=== PATIENT | male | born 1975 | race Caucasian/White ===

== ENCOUNTER 2022-10-23 12:17 | Emergency (ER) | payer BC, SELFPAY ==
--- OUTSIDE RECORDS SUMMARY | 2022-10-23 12:20 | XMS REPORT | Continuity of Care Document ---
:1975 Author Organization [facility] t Address [address] [place] [address] [place] [id number] Care Team Providers Name Role Phone Mendez CHANEY, Chuyita Primary Care Physician ADONIS KEENE Attending Clinician Unavailable PASCUAL TEMPLE Attending Clinician Unavailable LAB90 Attending Clinician Unavailable Lab, Adc Fam Pob I Attending Clinician Unavailable Ekaterina Bower MD Attending Clinician EKATERINA BOWER Attending Clinician Unavailable Doctor Unassigned, [place] Attending Clinician Unavailable JENNIFER CORTEZ Attending Clinician Unavailable Eva Goel Attending Clinician Payers Payer Name Policy Type Policy Number Effective Date Expiration Date S rose marie BCBS 2 [id number] 2022 00:00:00 Problems Condition Condition Condition Status Onset Resolution Last Treating Co mments Source Name Details Category Date Date Treatment Clinician Date 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 04-15 pathway pathway 00:00: Hospita 00 l Unspecifie Unspecifie Disease Active 2015-04 M ethodi d visual d visual 04-15 field field 00:00: Hospita defects defects 00 l 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 hodi vision vision 04-15 disorder disorder 00:00: Hospit a with with 00 l diplopia diplopia Blurred Blurred Disease Active 2015-04 Methodi vision, vision, 04-15 bilateral bilateral 00:00: Hosp sky 00 l Frequent Frequent Disease Active 2015-04 Metho di headaches headaches 1-08 st 00:00: Hospita 00 l No known No known Disease Kelse y active active Seybold problems problems - Externa l Allergies, Adverse Reactions, Alerts Allergy Allergy Status Severity Reaction(s) Onset Inactive Treating Comm ents Source Name Type Date Date Clinician NO KNOWN Drug Active Univers ALLERGIE Class ity of S [facility] Family History Family Member Diagnosis Comments Start Date Stop Date Source Natural sister Hypertension [facility] Natural sister Thyroid disease [facility]o [facility] Natural father Diabetes [facility] Natural father Hypertension [facility] Natural mother Cataracts [facility] Social History Social Habit Start Date Stop Date Quantity Comments Source Gender identity [facility] Sexual orientation [facility] Exposure to Not sure University SARS-CoV-2 (event) [facility] History SDOH Earline Seybo ld - Alcohol Binge External History SDOH Earline Seybo ld - Alcohol Frequency Externa l History SDOH Earline Seybo ld - Alcohol Std Drinks [employer] History of Social 2016-10-08 2016-10-[address] function 00:00:00 00:00:00 Hospital Alcohol intake 2016-03-05 2016-03-05 Current drinker Metho dist 00:00:00 00:00:00 of [facility] (finding) Alcohol Comment 2016-02-14 2016-02-14 [facility] Tobacco use and 2016-02-14 2016-02-14 Former smokeless Met [facility] exposure 00:00:00 00:00:00 tobacco user Hospital History of tobacco 2000-02-14 User of Method ist use 00:00:00 smokeless [facility] tobacco Sex Assigned At [birth year] [facility] 00:00:00 00:00:00 Hospital Smoking Status Start Date Stop Date Source Unknown if ever smoked Universit y of [facility] Never smoked tobacco Earline Seyb old - External Medications Ordered Filled Start Stop Current Ordering Indication Dosage Frequency Signature Comments Components Source Medication Medication Date Date Medication? Clinician (SIG) Name Name Losartan 2022-0 Yes 25mg Take 1 Earline Potassium 4-03 tablet (25 Seyb old 25 MG oral 00:00: mg total) - Tablet 00 by mouth Externa daily l Sertraline 2022-0 Yes [id number] 100mg Take 1 Earline HCl 100 MG 4-03 tablet Seybold oral Tablet 00:00: (100 mg - 00 total) by Externa mouth l daily Omeprazole Yes 40mg QD Take 1 Kelse y 40 MG oral 4-03 capsule Seybol d Delayed 00:00: (40 mg - Release 00 total) by Externa Capsule mouth l daily as needed Aripiprazol Yes [id number] 1{tbl} Take 1 Earline e (Abilify) 4-03 tablet by Sey bold 2 MG oral 00:00: mouth - Tablet 00 daily Externa l Aripiprazol 2022- No [id number] 1{tbl} Take 1 Earline e (Abilify) 4- 04-03 tablet by Se ybold 2 MG oral 00:00: 00:00 mouth - Tablet 00 :00 daily Externa l Amoxicillin 2022- No 1{tbl} Take 1 K elsey -Pot 4-06 09-03 tablet by Seybold Clavulanate 00:00: 00:00 mouth 2 - 875-125 MG 00 :00 times Externa oral Tablet daily l Pseudoeph-B 2022- No 10mL Q.25D Take 10 mL Earline romphen-DM - 04-03 by mouth 4 Se ybold (Bromfed 00:00: 00:00 times - DM) 30-2-10 00 :00 daily as Exte rna MG/5ML oral needed l Syrup TRIMETHOPRI 2022- No 1[drp] Place 1 Earline M-POLYMYXIN 07-09-03 drop into Se ybold B [id number] 00:00: 00:00 both eyes - UNIT/ML-% 00 :00 every 4 Externa ophthalmic (four) l Solution hours Atomoxetine 2022- No [id number] 40mg Take 1 Earline HCl 4-03 04-03 capsule Seybold (Strattera) 00:00: 00:00 (40 mg - 40 MG oral 00 :00 total) by Exte rna Capsule mouth l daily Losartan 2022- No 25mg Take 1 Earline Potassium 2-27 04-03 tablet (25 Sey bold 25 MG oral 00:00: 00:00 mg total) - Tablet 00 :00 by mouth Externa daily l Omeprazole 2022- No 40mg QD Take 1 Argenis ey 40 MG oral 06-04- capsule Seybo ld Delayed 00:00: 00:00 (40 mg - Release 00 :00 total) by Externa Capsule mouth l daily as needed Sertraline 0 2022- No 100mg Take 1 Krzysztof sey HCl 100 MG 06-04- tablet Seybol d oral Tablet 00:00: 00:00 (100 mg - 00 :00 total) by Externa mouth l daily Sertraline 2021-04 Yes 100mg Take 100 Ke lsey HCl 100 MG 1-26 mg by Seybold oral Tablet 00:00: mouth - 00 daily Externa l Sertraline 2021-04 Yes 100mg Take 100 Ke lsey HCl 100 MG 1-26 mg by Seybold oral Tablet 00:00: mouth - 00 daily Externa l Losartan Yes 25mg Take 25 mg Krzysztof sey Potassium 9-28 by mouth Seybol d 25 MG oral 00:00: daily - Tablet 00 Externa l Omeprazole Yes 40mg QD Take 40 mg K elsey 40 MG oral 9-28 by mouth Seybo ld Delayed 00:00: daily as - Release 00 needed Externa Capsule l Losartan Yes 25mg Take 25 mg Krzysztof sey Potassium 9-28 by mouth Seybol d 25 MG oral 00:00: daily - Tablet 00 Externa l Omeprazole 0 Yes 40mg QD Take 40 mg K elsey 40 MG oral 9-28 by mouth Seybo ld Delayed 00:00: daily as - Release 00 needed Externa Capsule l esomeprazol 2015-04 Yes Method i e (NexIUM) 04-13 st 40 MG 00:00: Hospita capsule 00 l sertraline 2015-04 Yes Methodi (ZOLOFT) 04-13 st 100 MG 00:00: Hospita tablet 00 l Vital Signs Vital Name Observation Time Observation Value Comments Source Systolic blood 2022-07-09 21:40:00 130 mm[Hg] Earline Edmond - pressure External Diastolic blood 2022-07-09 21:40:00 70 mm[Hg] Zachery Edmond - pressure External Heart rate 2022-07-09 21:40:00 71 /min Earline pagan - External Respiratory rate 2022-07-09 21:40:00 16 /min Argenis jones Seybold - External Body height 2022-07-09 21:40:00 190.5 cm Earline Georges eybold - External Body weight 2022-07-09 21:40:00 129.003 kg Earline Georges eybold - External BMI 2022-07-09 21:40:00 35.55 kg/m2 Earline Georges eybold - External Oxygen saturation in 2022-07-09 21:40:00 97 /min Earline Seybold - Arterial blood by External Pulse oximetry Systolic blood 2022-03-19 14:26:00 116 mm[Hg] Earline Seybold - pressure External Diastolic blood 2022-03-19 14:26:00 70 mm[Hg] Krzysztofse y Seybold - pressure External Heart rate 2022-03-19 14:26:00 86 /min Earline Georges eybold - External Body temperature 2022-03-19 14:26:00 36.89 Maria Antonia Argenis ey Seybold - External Respiratory rate 2022-03-19 14:26:00 16 /min Argenis jones Seybold - External Body height 2022-03-19 14:26:00 188 cm Earline Georges eybold - External Body weight 2022-03-19 14:26:00 133.358 kg Earline Georges eybold - External BMI 2022-03-19 14:26:00 37.75 kg/m2 Earline Georges eybold - External Procedures Procedure Date / Time Performed Performing Clinician [facility] e ASSIGNMENT OF BENEFITS 2020-11-17 18:42:15 Doctor Unassigned, No [facility] Plan of Care Planned Activity Planned Date Details Comments Source Future Scheduled 2022-09-21 Screening for [facility] Test 15:40:56 malignant neoplasm of colon (procedure) [code = 996021340] Future Scheduled 2022-09-21 Screening for [facility] Test 15:40:56 malignant neoplasm of colon (procedure) [code = 208182499] Future Scheduled 2022-09-21 Screening for [facility] Test 15:40:56 malignant neoplasm of colon (procedure) [code = [id number]] Future Scheduled 2022-09-21 [facility] 15:40:56 (#1) [code = COVID-19 VACCINE (#1)] Future Scheduled 2022-09-21 Screening for [facility] Test 15:40:56 malignant neoplasm of colon (procedure) [code = [id number]] Future Scheduled 2022-09-21 Screening for [facility] Test 15:40:56 malignant neoplasm of colon (procedure) [code = [id number]] Future Scheduled 2022-09-21 INFLUENZA VACCINE [facility] Test 15:40:56 [code = INFLUENZA VACCINE] Encounters Start End Encounter Admission Attending Care Care Encounter Source Date/Time Date/Time Type Type Clinicians Facility Department ID 2022-08-13 2022-08-13 Outpatient EARLINE KEENE [id number] Earline 00:00:00 00:00:00 ADONIS Seybol d 2022-07-09 2022-07-09 Outpatient EARLINE KEENE [id number] Earline 15:45:00 15:45:00 ADONIS Seybol d 2022-06-05 2022-06-05 Outpatient EARLINE KEENE [id number] Earline 00:00:00 00:00:00 ADONIS Seybol d 2022-06-04 2022-06-04 Outpatient EARLINE TEMPLE [id number] Earline 00:00:00 00:00:00 PASCUAL Seybol d 2022-03-29 2022-03-29 Outpatient EARLINE KEENE [id number] Earline 00:00:00 00:00:00 ADONIS Seybol d 2022-03-20 2022-03-20 Outpatient EARLINE TEMPLE [id number] Earline 10:45:00 10:45:00 PASCUAL Seybol d 2022-03-19 2022-03-19 Outpatient LAB90 EARLINE BOBO [id number] Earline 09:20:00 09:20:00 Seybol d 2022-03-19 2022-03-19 Outpatient EARLINE KEENE [id number] Earline 09:00:00 09:00:00 ADONIS Seybol d 2022-03-19 2022-03-19 Outpatient EARLINE KEENE [id number] Earline 08:30:00 08:30:[address] 2020-11-17 2020-11-17 Laboratory Lab, [facility] Fam Po I [facility] [id number]. [id number] Univers 13:42:54 14:02:54 Only Ekaterina [facility] [id number] ity of [place] [id number] [place] [facility] [phone] Tn dical nal [address] [employer] [facility] One 2020-11-17 2020-11-17 [facility] [id number] Univers 14:00:00 14:00:00 EKATERINA ity [facility] 2020-11-17 2020-11-17 Orders Doctor CLARISSA [id number] Univers 00:00:00 00:00:00 Only Unassigned, SIGIFREDO [id number] ity of [place] [facility] [id number] [place] [phone] [address] 2020-05-16 2020-05-16 [facility] [id number] Univers 17:40:00 17:55:48 JENNIFER ity [facility] 2020-03-29 2020-03-29 Laboratory Lab, [facility] Fam [facility] 1.2. [id number] Univers 13:55:55 14:15:55 Only Eva [facility] [id number] ity of [place] [id number] [place] Profess[facility] [phone] Tn dical nal [address] [employer] [address] [facility] 2020-03-29 2020-03-29 Outpatient R [facility] [id number] Univers 14:00:00 14:00:00 ity of [facility] Results This patient has no known results.
--- NOTE | 2022-10-23 13:02 | RAD REPORT ---
EXAM DESCRIPTION: CT - Head Brain Wo Cont - 10/23/2022 12:47 pm CLINICAL HISTORY: TRAUMA Headache, drowsiness COMPARISON: <Comparisons> TECHNIQUE: All CT scans are performed using dose optimization technique as appropriate and may inclu de automated exposure control or mA/KV adjustment according to patient size. FINDINGS: No intracranial hemorrhage, hydrocephalus or extra-axial fluid collection.No areas of brai n edema or evidence of midline shift. The paranasal sinuses and mastoids are clear. The calvarium is intact. IMPRESSION: No acute intracranial abnormality.
--- NOTE | 2022-10-23 14:00 | ER ---
Nurse's Notes [facility] Name: Daniel Foss Jr Age: 47 yrs Sex: Male : 1975 Arrival Date: 10/23/2022 Time: 12:17 Bed 8 Private MD: Diagnosis: Laceration without foreign body of scalp;Fall on and from ladder, initial encounter Presentation: 10/23 12:00 Trauma event details: Injury occurred in the [facility], Injury occurred: in a [facility] public building. Injury occurred: October 23, 2022 Injury occurred at: 12:25. 12:22 Chief complaint: EMS states: fell off 4ft ladder onto concrete while working at [facility] [employer]. 1st impact was left shoulder, then left side of head, denies LOC, not on blood thinners. 3cm laceration to left side of head, 2cm laceration to left medial upper arm, 2cm laceration to left knee. Care prior to arrival: Bleeding of injury controlled. Injury dressed. Mechanism of Injury: Fall from ladder approximately 4 feet. 12:22 Acuity: YAMILETH 2 [facility] 12:22 Method Of Arrival: EMS: [place] [address] 12:32 Coronavirus screen: Vaccine status: Patient reports being unvaccinated. Ebola Screen: [facility] No symptoms or risks identified at this time. Initial Sepsis Screen: Does the patient meet any 2 criteria? No. Patient's initial sepsis screen is negative. Does the patient have a suspected source of infection? No. Patient's initial sepsis screen is negative. Risk Assessment: Do you want to hurt yourself or someone else? Patient reports no desire to harm self or others. Onset of symptoms was October 23, 2022. Historical: - Allergies: 12:33 No Known Allergies; [facility] - Home Meds: 12:33 losartan oral [Active]; Omeprazole Oral [Active]; sertraline oral [Active]; 3 aripiprazole oral [Active]; - PMHx: 12:33 Hypertensive disorder; Depressive disorder; 3 - Immunization history: Last tetanus immunization: < 10 years ago. - Social history:: Smoking status: Patient denies any tobacco usage or history of. Patient uses alcohol, occasionally. Screenin:20 Abuse screen: Denies threats or abuse. Denies injuries from another. Tuberculosis [facility] screening: No symptoms or risk factors identified. 12:22 [facility] ED Fall Risk Assessment (Adult) Score/Fall Risk Level 0 - 2 = Low Risk. eh3 Nutritional screening: No deficits noted. Primary Survey: 12:20 NO uncontrolled hemorrhage observed. Breathing/Chest: Spontaneous respiratory effort, eh3 equal unlabored respirations, breath sounds clear bilaterally, regular pattern, symmetrical chest rise and fall. Circulation: No external hemorrhage present. Regular and strong central pulse, skin warm/dry/normal color. Disability Pupils are equal, round, reactive to light and accommodation. Client is alert. Exposure/Environment: All clothing and personal items were removed. There is no evidence of uncontrolled external bleeding. Obvious injury(ies) are noted at this time: 3 lacerations and bruising A warming method has been applied: A warm blanket has been provided to the patient. Reassessment Breathing: Spontaneous respiratory effort, equal unlabored respirations, breath sounds clear bilaterally, regular pattern with symmetrical chest rise and fall. Circulation: No external hemorrhage noted. Regular and strong central pulse, skin warm/dry/normal color. Disability: Pupils Pupils are equal, round, reactive to light and accomodation. Alert. Assessment: 12:20 General: Appears in no apparent distress. uncomfortable, Behavior is calm, cooperative, eh3 appropriate for age. Pain: Complains of pain in head, anterior aspect of left shoulder and posterior aspect of left shoulder Pain currently is 7 out of 10 on a pain scale. Neuro: Level of Consciousness is awake, alert, obeys commands, Oriented to person, place, time, situation. Neuro: Speech is normal, Pupils are PERRLA. Cardiovascular: Capillary refill < 3 seconds Patient's skin is warm and dry. Respiratory: Airway is patent Respiratory effort is even, unlabored, Respiratory pattern is regular, symmetrical. GI: Abdomen is round non-distended. Derm: Skin is pink, warm \T\ dry. Wound noted. Musculoskeletal: Circulation, motion, and sensation intact. 13:20 Reassessment: Patient appears in no apparent distress at this time. No changes from kc6 previously documented assessment. Patient and/or family updated on plan of care and expected duration. Pain level reassessed. Patient is alert, oriented x 3, equal unlabored respirations, skin warm/dry/pink. 14:20 Reassessment: Patient appears in no apparent distress at this time. Patient and/or eh3 family updated on plan of care and expected duration. Pain level reassessed. Patient is alert, oriented x 3, equal unlabored respirations, skin warm/dry/pink. Vital Signs: 12:20 BP 117 / 73; Pulse 81; Resp 18; Temp 98.2(TE); Pulse Ox 97% on R/A; Weight 117.03 kg; eh3 Height 6 ft. 3 in. ; Pain 7/10; 13:29 BP 137 / 76; Pulse 72; Resp 17 S; Pulse Ox 100% on R/A; kc6 14:20 BP 136 / 85; Pulse 72; Resp 16; Pulse Ox 96% on R/A; eh3 12:20 Body Mass Index 32.25 (117.03 kg, 190.5 cm) eh3 12:20 Pain Scale: Adult eh3 [place] Coma Score: 12:20 Eye Response: spontaneous(4). Motor Response: obeys commands(6). Verbal Response: eh3 oriented(5). Total: 15. Trauma Score (Adult): 12:20 Eye Response: spontaneous(1); Verbal Response: oriented(1); Motor Response: obeys eh3 commands(2); Systolic BP: > 89 mm Hg(4); Respiratory Rate: 10 to 29 per min(4); Tres Score: 15; Trauma Score: 12 ED Course: 12:20 Patient has correct armband on for positive identification. Placed in gown. Bed in low eh3 position. Call light in reach. Side rails up X2. Patient maintains SpO2 saturation greater than 95% on room air. 12:20 Patient maintains SpO2 saturation greater than 95% on room air. eh3 12:22 Patient arrived in ED. eh3 12:22 Thermoregulation: warm blanket given to patient. eh3 12:24 Kiana Aleman PA-C is PHCP. sb4 12:24 Samm Santos MD is Attending Physician. sb4 12:26 Triage completed. eh3 12:33 Arm band placed on. eh3 12:35 Christine Baez, KARISSA is Primary Nurse. eh3 12:47 Head Brain Wo Cont CT In Process Unspecified. EDMS 13:26 Shoulder Right (2 View) XRAY In Process Unspecified. EDMS 14:10 Wound care: to laceration located on left temporal area and left arm was cleaned with eh3 Betadine, irrigated with normal saline, dressed with Neosporin, band aid. 14:28 No provider procedures requiring assistance completed. Patient did not have IV access eh3 during this emergency room visit. Administered Medications: 14:00 Drug: Boostrix Tdap IM 0.5 ml Route: IM; Site: right deltoid; eh3 14:28 Follow up: Response: (VIS) Vaccine information sheet provided today. Questions and/or eh3 concerns addressed. VIS edition date: Nov 11, 2020.; No adverse reaction Medication: 14:00 Vaccine Information Statement (VIS) provided today. Questions and/or concerns eh3 addressed. VIS edition date: November 26, 2020. Outcome: 14:00 Discharge ordered by . sb4 14:29 Discharged to home ambulatory, with significant other. eh3 14:29 Condition: stable 14:29 Discharge instructions given to patient, Instructed on discharge instructions, follow up and referral plans. wound care, Demonstrated understanding of instructions, follow-up care, wound care. 14:29 Patient's length of stay was not longer than 2 hours. 14:29 Patient left the ED. eh3 Signatures: Dispatcher [employer] Christine Dixon RN RN eh3 Rosamaria Antonio RN RN Kiana Arora, KAREN PAMaria Del Rosario sb4
--- NOTE | 2022-10-23 14:00 | EDPHYS ---
Physician Documentation [facility] Name: Daniel Foss Jr Age: 47 yrs Sex: Male : 1975 Arrival Date: 10/23/2022 Time: 12:17 Bed 8 Private MD: ED Physician Samm Santos HPI: 10/23 13:32 This 47 yrs old Male presents to ER via EMS with complaints of Fall Injury. sb4 13:32 Details of fall: The patient fell from a height, from a ladder, approximately 4 feet. sb4 Onset: The symptoms/episode began/occurred just prior to arrival. Associated injuries: The patient sustained injury to the head, laceration, 3 cm(s), of the left temporal area, anterior aspect of left shoulder. The patient has not experienced similar symptoms in the past. Historical: - Allergies: 12:33 No Known Allergies; eh3 - Home Meds: 12:33 losartan oral [Active]; Omeprazole Oral [Active]; sertraline oral [Active]; eh3 aripiprazole oral [Active]; - PMHx: 12:33 Hypertensive disorder; Depressive disorder; eh3 - Immunization history: Last tetanus immunization: < 10 years ago. - Social history:: Smoking status: Patient denies any tobacco usage or history of. Patient uses alcohol, occasionally. ROS: 13:32 Constitutional: Negative for fever, chills, and weight loss, Eyes: Negative for injury, sb4 pain, redness, and discharge, Cardiovascular: Negative for chest pain, palpitations, and edema, Respiratory: Negative for shortness of breath, cough, wheezing, and pleuritic chest pain, Abdomen/GI: Negative for abdominal pain, nausea, vomiting, diarrhea, and constipation. 13:32 MS/extremity: Positive for injury or acute deformity, pain, of the anterior aspect of left shoulder. 13:32 Skin: Positive for laceration(s), of the left temporal area. 13:32 All other systems are negative. Exam: 13:32 Constitutional: This is a well developed, well nourished patient who is awake, alert, sb4 and in no acute distress. ENT: Mucous membranes moist. Cardiovascular: Regular rate and rhythm with a normal S1 and S2. Respiratory: Lungs have equal breath sounds bilaterally, clear to auscultation and percussion. No rales, rhonchi or wheezes noted. No increased work of breathing, no retractions or nasal flaring. Abdomen/GI: Soft, non-tender, no distension. MS/ Extremity: Pulses equal, no cyanosis. Neurovascular intact. Full, normal range of motion. Neuro: Awake and alert, GCS 15, oriented to person, place, time, and situation. Cranial nerves II-XII grossly intact. Motor strength 5/5 in all extremities. Sensory grossly intact. Cerebellar exam normal. Normal gait. 13:32 Head/face: Noted is a laceration(s), that is linear, 3 cm(s), of the left temporal area. 13:32 Skin: skin tear right knee and right forearm. Vital Signs: 12:20 BP 117 / 73; Pulse 81; Resp 18; Temp 98.2(TE); Pulse Ox 97% on R/A; Weight 117.03 kg; eh3 Height 6 ft. 3 in. ; Pain 7/10; 13:29 BP 137 / 76; Pulse 72; Resp 17 S; Pulse Ox 100% on R/A; kc6 14:20 BP 136 / 85; Pulse 72; Resp 16; Pulse Ox 96% on R/A; eh3 12:20 Body Mass Index 32.25 (117.03 kg, 190.5 cm) eh3 12:20 Pain Scale: Adult eh3 Tres Coma Score: 12:20 Eye Response: spontaneous(4). Motor Response: obeys commands(6). Verbal Response: eh3 oriented(5). Total: 15. Trauma Score (Adult): 12:20 Eye Response: spontaneous(1); Verbal Response: oriented(1); Motor Response: obeys eh3 commands(2); Systolic BP: > 89 mm Hg(4); Respiratory Rate: 10 to 29 per min(4); [place] Score: 15; Trauma Score: 12 Laceration: 13:56 Wound Repair of 2.5cm ( 1.0in ) subcutaneous laceration to left temporal area. Minimal sb4 contamination.. arc shaped. Distal neuro/vascular/tendon intact. Wound prep: Moderate cleansing with hibiclenz by me, Wound irrigation with saline by me, Wound explored moderately. Skin closed with 3 [place] using staple gun. Dressed with non-adherent dressing. Patient tolerated well. MDM: 12:24 Patient medically screened. sb4 13:32 Differential diagnosis: abrasion, closed head injury, contusion, fracture, laceration, sb4 multiple trauma, sprain, strain. 13:56 Data reviewed: vital signs, nurses notes, radiologic studies, CT scan, plain films, I sb4 have discussed the patient's presentation/case with the attending Emergency Department Physician; and as a result, I will discharge patient. Test considered but Not performed: Labs: not indicated. Historians other than the Patient: Spouse/Significant Other: spouse. Care significantly affected by the following chronic conditions: Hypertension. Counseling: I had a detailed discussion with the patient and/or guardian regarding: the historical points, exam findings, and any diagnostic results supporting the discharge/admit diagnosis, radiology results, the need for outpatient follow up, for staple removal, to return to the emergency department if symptoms worsen or persist or if there are any questions or concerns that arise at home. 10/23 12:32 Order name: Head Brain Wo Cont CT; Complete Time: 13:20 sb4 10/23 12:32 Order name: Shoulder Right (2 View) XRAY; Complete Time: 14:02 sb4 10/23 13:35 Order name: Wound Care; Complete Time: 14:28 sb4 10/23 13:56 Order name: Wound dressing; Complete Time: 14:28 sb4 Administered Medications: 14:00 Drug: Boostrix Tdap IM 0.5 ml Route: IM; Site: right deltoid; eh3 14:28 Follow up: Response: (VIS) Vaccine information sheet provided today. Questions and/or eh3 concerns addressed. VIS edition date: Nov 11, 2020.; No adverse reaction Disposition: 14:50 Co-signature as Attending Physician, Samm Santos MD I agree with the assessment and kdr plan of care. Disposition Summary: 10/23/22 14:00 Discharge Ordered Location: Home sb4 Problem: new sb4 Symptoms: have improved sb4 Condition: Stable sb4 Diagnosis - Laceration without foreign body of scalp sb4 - Fall on and from ladder, initial encounter sb4 Followup: sb4 - With: Emergency Department - When: 7 - 10 days - Reason: Wound Recheck, Staple/Suture removal Discharge Instructions: - Discharge Summary Sheet sb4 - Sutures, Gary, or Adhesive Wound Closure, [id number] sb4 Forms: - Work release form aa5 - Medication Reconciliation Form sb4 - Thank You Letter sb4 - Antibiotic Education sb4 - Prescription Opioid Use sb4 - Patient Portal Instructions sb4 Signatures: Dispatcher [employer] Samm Borrero MD MD kdr Hall, Erin, RN RN 3 Kiana Aleman, KAREN JONES sb4
--- NOTE | 2022-10-23 14:01 | RAD REPORT ---
EXAM DESCRIPTION: RAD - Shoulder Right 2 View - 10/23/2022 1:24 pm CLINICAL HISTORY: trauma, fall COMPARISON: <Comparisons> FINDINGS: Mild AC joint degenerative changes are present. No acute fracture or dislocation.
[2022-10-23 14:55] VITALS: TEMP 98.2
[2022-10-23 14:56] VITALS: BP 137/76; O2SAT 100
== END 2022-10-23 14:29 | disposition home or self-care (01) ==
LOC: ER 12:17
PROC: 0HQ0XZZ Repair Scalp Skin, External Approach (ICD-10-PCS; principal; 2022-10-23)
DX: S01.01XA Laceration without foreign body of scalp, initial encounter (principal); W11.XXXA Fall on and from ladder, initial encounter
CPT/HCPCS: 70450; 96372; 99285